=== PATIENT | female | born 1950 | race Two or more races ===

== ENCOUNTER 2025-02-19 08:10 | Inpatient (IN) | payer MEDICARE, MEDICAID ==
[~2025-02-19] VITALS: Ht 154.9 cm; Wt 102.4 kg
--- NOTE | 2025-02-19 09:12 | ED.PDOC ---
GI ASSESSMENT HPI Comments Shiela Do is a 74-year-old female, with past medical history of Dementia, CHF, COPD, DM2, peripheral neuropathy, CKD stage IV, anemia, hearing loss, hypelipidemia, HTN and obesity. The patient came to the ED via EMS from [facility] with chief complain of 2 days of watery diarrhea, abundant, foul smell, yellowish, no blood; associated with loss of appetite, sob, wet cough and general weakness. The patient's caregiver is providing the information today. On further questioning, the patient is being in the post acute facility due to tibia fracture since 11/17/24. Today, the caregiver noticing the patient with alter mental status and decided to take the patient to the ED. The caregiver denies fever, nausea, vomit or other symptoms. In the ED: BP: 134/81mmHg, HR: 75bpm. RR: 18xmin. The patient will be admitted for further assessment and managements. Chief Complaint: Diarrhea Time Seen by MD: 08:22 Reviewed Notes: Nurses Notes Allergies: Coded Allergies: Lactose (Verified Allergy, Unknown, 02/19/25) Information Source: Patient Mode of Arrival: EMS Timing: Days Duration: Since onset Past Medical History PAST MEDICAL HISTORY: CHF, COPD, Dementia, DM, ESRD (Stage IV), HTN, MRSA Surgical History: Unknown (Caregiver does not have this information. ), Unobtainable FLIGHT MECHANIC History: Unobtainable Family History Family History: Unobtainable Social History Smoker: Non-Smoker Alcohol: Denies ETOH Use Drugs: Denies Drug Use Lives In: [facility] ([facility]) Constitutional: reports: weakness; denies: chills, diaphoresis, fatigue, fever, malaise, sweats, others EENTM: denies: blurred vision, double vision, ear bleeding, ear discharge, ear drainage, ear pain, ear ringing, eye pain, eye redness, hearing loss, mouth pain, mouth swelling, nasal discharge, nose bleeding, nose congestion, nose pain, photophobia, tearing, throat pain, throat swelling, voice changes, others Respiratory: reports: cough, shortness of breath (Oxigen 2L at home. ); denies: hemoptysis, orthopnea, SOB at rest, SOB with excertion, stridor, wheezing, others Cardiovascular: denies: chest pain, dizzy spells, diaphoresis, Dyspnea on exertion, edema, irregular heart beat, left arm pain, lightheadedness, palpitations, PND, syncope, others Gastrointestinal: denies: abdomen distended, abdominal pain, blood streaked bowels, constipated, diarrhea, dysphagia, difficulty swallowing, hematemesis, melena, nausea, poor appetite, poor fluid intake, rectal bleeding, rectal pain, vomiting, others Genitourinary: denies: abnormal vagina bleeding, burning, dyspareunia, dysuria, flank pain, frequency, hematuria, incontinence, pain, , vagina discharge, urgency, others Neurological: reports: others (Peripheral neuropathy); denies: dizziness, fainting, headache, left sided numbness, left sided weakness, numbness, paresthesia, pre-existing deficit, right sided numbness, right sided weakness, seizure, speech problems, tingling, tremors, weakness Musculoskeletal: denies: back pain, gout, joint pain, joint swelling, muscle pain, muscle stiffness, neck pain, others Integumetry: denies: bruises, change in color, change in hair/nails, dryness, laceration, lesions, lumps, rash, wounds, others Allergic/Immunocompromised: denies: Difficulty Healing, Frequent Infections, Hives, Itching, others Hematologic/Lymphatic: reports: anemia; denies: blood clots, easy bleeding, easy bruising, swollen glands, others Endocrine: denies: excessive hunger, excessive sweating, excessive thirst, excessive urination, flushing, intolerance to cold, intolerance to heat, unexplained weight gain, unexplained weight loss, others Psychiatric: denies: anxiety, bipolar disorder, depression, hopeless, panic disorder, schizophrenia, sleepless, suicidal, others Physical Exam Exam Comments Alert, Oriented in person, but confused and has dementia. General Appearance: Mild Distress, Other (Pale) HEENT: Normal ENT Inspection, Pharynx Normal, TMs Normal Neck: Full Range of Motion, Non-Tender, Normal, Normal Inspection Respiratory: Chest Non-Tender, Rhonchi, Wheezing, Other (Bilateral rhonchi and wheezing.) Cardiovascular: No Murmur, No Gallop, Regular Rate/Rhythm Breast Exam: Deferred Gastrointestinal: Normal Bowel Sounds, Soft, Other (No grimance on deep palpation. ) Genitalia: Deferred Pelvic: Deferred Rectal: Deferred Extremities: Other (Inspection: Left leg: with orthopedic boot. Right leg: dry skin. Bilateral mild no pittting edema. ) Musculoskeletal : Apperance: Normal Neurologic: Alert, search manager II-XII nml as Tested, No Motor Deficits, Normal Affect, Normal Mood, No Sensory Deficits, Other (On wheelchair. ) Cerebellar Function: Other (difficult to evaluate) Reflexes: Normal Skin: Dry, Warm Lymphatic: No Adenopathy Was a procedure done? Was a procedure done?: No GI differential Dx Differential Diagnosis: Gastroenteritis, Electrolyte Imbalance, Bacterial, Viral Other Differential Diagnosis Enteritis X-Ray, Labs, Meds, VS Vital Signs Date Time Temp Pulse Resp B/P (MAP) Pulse Ox O2 Delivery O2 Flow Rate FiO2 02/19/25 08:13 97.8 75 18 134/81 96 97.8 Lab Test 02/19/25 08:59 Range/Units White Blood Count Pending Red Blood Count Pending Hemoglobin Pending Hematocrit Pending Mean Corpuscular Volume Pending Mean Corpuscular Hemoglobin Pending Mean Corpuscular Hemoglobin Concent Pending Red Cell Distribution Width Pending Platelet Count Pending Mean Platelet Volume Pending Neutrophils (%) (Auto) Pending Lymphocytes (%) (Auto) Pending Monocytes (%) (Auto) Pending Basophils (%) (Auto) Pending Neutrophils # (Auto) Pending Lymphocytes # (Auto) Pending Monocytes # (Auto) Pending Sodium Level Pending Potassium Level Pending Chloride Level Pending Carbon Dioxide Level Pending Anion Gap Pending Blood Urea Nitrogen Pending Creatinine Pending Glomerular Filtration Rate Calc Pending BUN/Creatinine Ratio Pending Serum Glucose Pending Calcium Level Pending Total Bilirubin Pending Aspartate Amino Transferase (AST) Pending Alanine Aminotransferase (ALT) Pending Alkaline Phosphatase Pending Total Protein Pending Albumin Pending X-Ray, Labs, Meds, VS Comment 0900 The patient was re-evaluated Alert, confused, in wheelchair, caregiver is by her side. CBC: Hb 11.3mg/dl CMP: pending at this time The patient will be admitted for further assessment and management. Time of 1ST Reevaluation: 09:00 Reevaluation 1ST: Unchanged Patient Education/Counseling: Diagnosis, Treatment, Prognosis, Need For Follow Up Family Education/Counseling: Diagnosis, Treatment, Prognosis, Need For Follow Up SEPSIS Sepsis Screen Date sepsis recognized/suspect: Feb 19, 2025 Time Sepsis recognized/suspect: 0816 Recent Procedure: No On Antibiotic Therapy: No Respiratory Rate >20: No Heart Rate >90: No Temp<36 C (96.8 F) or >38.3 C: No SBP <90 or MAP <65 mmHG: No New Acute Mental Status Change: No Is the patient on CPAP, BIPAP,: No Physician Orders Complete Blood Count (02/19/25 08:38) Comprehensive Metabolic Panel (02/19/25 08:38) Urinalysis (02/19/25 08:38) Stool Wbc (02/19/25 08:38) Sodium Chloride 0.9% (02/19/25 08:45) Chest Xray 1 View (02/19/25 08:38) Blood Culture (02/19/25 08:38) Stool Bacterial Culture (02/19/25 08:38) Ceftriaxone 1gm/50ml (Rocephin) (02/19/25 08:45) Clostridium Difficile Toxin (02/19/25 08:45) Electrocardigram (02/19/25 08:48) Lactic Acid W/ Reflex Order (02/19/25 08:48) Lipase (02/19/25 09:13) Vancomycin (02/19/25 09:15) Vital Signs Date Time Temp Pulse Resp B/P (MAP) Pulse Ox O2 Delivery O2 Flow Rate FiO2 02/19/25 08:13 97.8 75 18 134/81 96 97.8 Laboratory Tests Test 02/19/25 08:59 White Blood Count Pending Departure 1 Departure Time of Disposition: 09:14 Impression: Primary Impression: Pneumonia Additional Impressions: COPD exacerbation Gastroenteritis Disposition: 09 ADMITTED INPATIENT Admit to: Med Surg Condition: Fair Comments Goals of care discussed with the patient > 35 min. Discussed plan of care with Dr. Louise Code status: Full code PCP: Dr. Arias Coon Plan discussed with: Caregiver and patient, caregiver agrees with the admission plan. Critical Care Note Critical Care Time?: No Stability Stability form required: No Heart Score Heart Score: Heart Score Response (Comments) Value History N/A 0 EKG N/A 0 Age N/A 0 Risk Factors N/A 0 Troponin N/A 0 Total 0 ARTEMIO WOOD RESIDENT Feb 19, 2025 09:12
[2025-02-19 09:16] LABS: Hematocrit 34.3 % (36.0-46.0); Hemoglobin 11.3 g/dL (12.2-16.2); Mean Corpuscular Hemoglobin 27.3 pg (28.0-32.0); Mean Corpuscular Volume 82.8 fL (80.0-100.0); Nucleated Red Blood Cells % 0.0 %
[2025-02-19 09:33] LABS: Albumin 4.0 g/dL (3.2-4.8); Alkaline Phosphatase 102 U/L (46-116); Anion Gap 9 (5-15); BUN/Creatinine Ratio 12.9 (10.0-20.0); Blood Urea Nitrogen 22 mg/dL (9-23); Calcium 8.8 mg/dL (8.7-10.4); Chloride 100 mmol/L (98-107); Potassium 4.2 mmol/L (3.5-5.1); Sodium 144 mmol/L (136-145); Total Protein 6.8 g/dL (5.7-8.2)
[2025-02-19 09:34] LABS: Bilirubin, Total 0.3 mg/dL (0.2-1.0)
[2025-02-19 09:37] LABS: Alanine Aminotransferase < 9 U/L (7-40); Carbon Dioxide 35 mmol/L (20-31); Glucose 110 mg/dL (74-106)
[2025-02-19] MEDS: SODIUM CHLORIDE 0.9% 1,000 ML IV ONE (11:14)
[2025-02-19] MEDS: VANCOMYCIN 1GM/250ML KIT 250 ML IV ONE (11:16)
--- NOTE | 2025-02-19 13:33 | DVH ---
CLINICAL HISTORY: r/o pneumpnia TECHNIQUE: Single view of the chest was obtained. COMPARISON: CHEST 1VIEW PORTABLE ([id number]) on DOS: 11/11/24, CHEST 1VIEW PORTABLE ([id number]) on DOS: 10/19/24, CHEST 1VIEW PORTABLE ([id number]) on DOS: 10/12/24, CHEST 1VIEW PORTABLE ([id number]) on DOS: 10/06/24, CHEST 1VIEW PORTABLE ([id number]) on DOS: 09/17/24 FINDINGS: The heart size is normal in size and the pulmonary vasculature is prominent. There are bilateral infrahilar opacities. IMPRESSION: Bilateral infrahilar opacities, which may represent infection or pulmonary edema. LUIS KAPLAN
[2025-02-19 16:21] VITALS: PULSE 71; RESP 16; O2SAT 95
[2025-02-19 16:35] LABS: Urine Budding Yeast OCCASIONAL /hpf (None Seen); Urine Protein, UAD Negative (Negative)
[2025-02-19] MEDS ORDERED: VANCOMYCIN 1.25GM/250ML 250 ML IV SCH (17:30)
[2025-02-19] MEDS ORDERED: VANCOMYCIN PER PHARMACY 0 MG IV SCH (17:45)
[2025-02-19] MEDS: SODIUM CHLORIDE 0.9% 1,000 ML IV SCH ×2 (17:52→19:15)
--- NOTE | 2025-02-19 18:19 | DVHHPRES ---
History of Present Illness Resident Creating Document: MALACHI ORTEGA RESIDENT History of Present Illness The patient a 70 history: CHF with unknown EF, COPD with unknown home oxygen status, type 2 diabetes mellitus, peripheral neuropathy, CKD stage 4 unknown dialysis status, produces urine, anemia, hearing loss, hyperlipidemia, hyp ertension, obesity presented to the ER with complaints of diarrhea. The patient presented with altered mental status, confusion and agitation. Due to the patient's status, most of the history obtained from SNF papers, ED doctors and the nurses. The diarrhea is not mixed with blood, associated with loss of appetite, shortness of breath,cough and generalized weakness. Patient was in the post acute care facility following tibia fracture. Rest of the history was not obtained due to patient's mental status, upon improvement of mental status Past surgical and social history will be obtained. Review of Systems Allergies: Coded Allergies: Lactose (Verified Allergy, Unknown, 02/19/25) Medications Current Medications Medications Dose Ordered Sig/Jessica Route Start Time Stop Time Status Last Admin Dose Admin Sodium Chloride 1,000 ml @ 120 mls/hr Q8H20M IV 02/19/25 17:30 02/19/25 17:52 120 MLS/HR Ceftriaxone Sodium 50 ml @ 100 mls/hr DAILY@09 IV 02/20/25 09:00 Vancomycin HCl 0 ml @ 0 mls/hr UD IV 02/19/25 17:45 UNV Exam Vital Signs Vital Signs Date Time Temp Pulse Resp B/P (MAP) Pulse Ox O2 Delivery O2 Flow Rate FiO2 02/19/25 16:21 71 16 95 Nasal Cannula* 2 28 02/19/25 16:20 97.3 140/110 (120) 97.3 Exam Pt is lying on bed General Appearance: Alert, Oriented X3, Cooperative, Mild distress HEENT: Atraumatic, Mucous membranes moist/pink Respiratory: Mild crackles over both lung nelson, Normal air movement, No added sounds Cardiovascular: Regular rate, Normal S1, Normal S2, No murmurs Abdominal/ : Active bowel sounds, Soft, no distention, no tenderness Extremities: No edema, Normal pulses, right leg orthopedic brace present Skin: Stage II sacral ulcers present on admission. Neuro: Normal speech, sensorimotor deficits none Psych/Mental Status: Mental status NL, Mood NL Nurse was there as network security architect during examination Labs/Xrays Labs Test 02/19/25 17:53 02/19/25 16:00 10/17/25 09:32 02/19/25 08:59 Range/Units Urine Color Colorless Yellow Urine Clarity Turbid H Clear Urine pH 5.5 5.0-9.0 Urine Specific Bolton 1.009 1.001-1.035 Urine Protein Negative Negative Urine Ketones Negative Negative Urine Blood Negative Negative /uL Urine Nitrite Negative Negative Urine Bilirubin Negative Negative Urine Urobilinogen Normal Negative mg/dL Urine Leukocyte Esterase 3+ Negative /uL Urine RBC 1 0 - 4 /hpf Urine Microscopic WBC 149 H 0-5 /HPF Urine Squamous Epithelial Cells Many <5 /hpf Urine Bacteria Mod H None Seen /hpf Urine Hyaline Casts Few 0 - 2 /lpf Urine Yeast (Budding) Occasional None Seen /hpf Urine Glucose Normal Normal mg/dL Lactic Acid Level 1.5 0.4-2.0 mmol/L White Blood Count 9.3 4.4-10.8 10^3/uL Red Blood Count 4.14 4.0-5.20 10^6/uL Hemoglobin 11.3 L 12.2-16.2 g/dL Hematocrit 34.3 L 36.0-46.0 % Mean Corpuscular Volume 82.8 80.0-100.0 fL Mean Corpuscular Hemoglobin 27.3 L 28.0-32.0 pg Mean Corpuscular Hemoglobin Concent 32.9 32.0-36.0 g/dL Red Cell Distribution Width 15.5 H 11.8-14.3 % Platelet Count 272 140-450 10^3/uL Mean Platelet Volume 7.9 6.9-10.8 fL Neutrophils (%) (Auto) 73.4 37.0-80.0 % Lymphocytes (%) (Auto) 6.3 L 10.0-50.0 % Monocytes (%) (Auto) 12.8 H 0.0-12.0 % Eosinophils (%) (Auto) 7.1 H 0.0-7.0 % Basophils (%) (Auto) 0.4 0.0-2.0 % Neutrophils # (Auto) 6.8 1.6-8.6 10 ^3/uL Lymphocytes # (Auto) 0.6 0.4-5.4 10 ^3/uL Monocytes # (Auto) 1.2 0-1.3 10 ^3/uL Eosinophils # (Auto) 0.7 0-0.8 10 ^3/uL Basophils # (Auto) 0 0-0.2 10 ^3/uL Nucleated Red Blood Cells 0.0 % Sodium Level 144 136-145 mmol/L Potassium Level 4.2 3.5-5.1 mmol/L Chloride Level 100 98-107 mmol/L Carbon Dioxide Level 35 H 20-31 mmol/L Anion Gap 9 5-15 Blood Urea Nitrogen 22 9-23 mg/dL Creatinine 1.70 H 0.550-1.02 mg/dL Glomerular Filtration Rate Calc 31 >90 mL/min BUN/Creatinine Ratio 12.9 10.0-20.0 Serum Glucose 110 H 74-106 mg/dL Calcium Level 8.8 8.7-10.4 mg/dL Total Bilirubin 0.3 0.2-1.0 mg/dL Aspartate Amino Transferase (AST) 9 L 13-40 U/L Alanine Aminotransferase (ALT) < 9 7-40 U/L Alkaline Phosphatase 102 46-116 U/L Total Protein 6.8 5.7-8.2 g/dL Albumin 4.0 3.2-4.8 g/dL Lipase 29 12-53 U/L SEPSIS Sepsis Screen Date sepsis recognized/suspect: Feb 19, 2025 Time Sepsis recognized/suspect: 08 Recent Procedure: No On Antibiotic Therapy: No Respiratory Rate >20: No Heart Rate >90: No Temp<36 C (96.8 F) or >38.3 C: No SBP <90 or MAP <65 mmHG: No New Acute Mental Status Change: No Is the patient on CPAP, BIPAP,: No Physician Orders Complete Blood Count (02/20/25 04:00) Insert/Manage Urinary Catheter QSHIFT (02/19/25 16:26) Admit (02/19/25:28) Sodium Chloride 0.9% (02/19/25 17:30) Oxygen Per Hour (02/19/25 17:28) Fall Risk Precautions In Place QSHIFT (02/19/25 17:28) Complete Blood Count (02/20/25 04:00) Comprehensive Metabolic Panel (02/20/25 04:00) Npo (Nothing By Mouth) Diet (02/19/25 Dinner) * Swallow Request (02/19/25 17:28) Bedrest With Bathroom Privileg (02/19/25 17:28) Sequential Compression Device (02/19/25 ) Notify Md Of Changes From Base (02/19/25 17:28) Stat Ekg For Chest Pain (02/19/25 17:28) Urine Bacterial Culture (02/19/25 17:28) Ceftriaxone 1gm/50ml (Rocephin) (02/20/25 09:00) Vancomycin Per Pharmacy Protoc (02/19/25 17:28) Vancomycin,Trough (02/19/25 17:28) Vancomycin Per Pharmacy (02/19/25 17:45) Vital Signs Date Time Temp Pulse Resp B/P (MAP) Pulse Ox O2 Delivery O2 Flow Rate FiO2 02/19/25 16:21 71 16 95 Nasal Cannula* 2 28 02/19/25 16:20 97.3 71 16 140/110 (120) 95 97.3 Laboratory Tests Test 02/19/25 08:59 02/19/25 09:32 White Blood Count 9.3 10^3/uL (4.4-10.8) Lactic Acid Level 1.5 mmol/L (0.4-2.0) Medications Medications Dose Ordered Sig/Jessica Route Start Time Stop Time Status Last Admin Dose Admin Ceftriaxone Sodium 50 ml @ 100 mls/hr ONCE ONCE IV 02/19/25 08:45 02/19/25 09:14 DC 02/19/25 11:15 100 MLS/HR Sodium Chloride 1,000 ml @ 120 mls/hr Q8H20M IV 02/19/25 17:30 02/19/25 17:52 120 MLS/HR Sodium Chloride 1,000 ml @ 500 mls/hr Q2H ONCE IV 02/19/25 08:45 02/19/25 11:09 DC 02/19/25 11:14 500 MLS/HR Vancomycin HCl 250 ml @ 250 mls/hr ONCE ONCE IV 02/19/25 09:15 02/19/25 10:14 DC 02/19/25 11:16 250 MLS/HR Assessment/Plan Assessment/Plan Sepsis due to acute gastroenteritis IV bolus fluid IV ceftriaxone and metronidazole Stool culture, stool C diff sent Urinalysis and urine culture sent JOSE due to VMN IV fluid Monitor renal functions History of systolic or diastolic heart failure with unknown ejection fraction Aspiration pneumonia? Pneumonia due to Gram-positive or Gram-negative organism Chest x-ray reveals pulmonary edema/pneumonia IV Ceftriaxone and doxycycline GI prophylaxis: Pantoprazole DVT prophylaxis: SCDs Diet: Pureed diet Goals of care discussed with the patient for more than 27 minutes: Full code status Case discussed with , patient and RN Plan discussed with: Patient, Other (RN) My Orders Orders - MALACHI ORTEGA RESIDENT Procedure Category Date Status Time Admit ADMIT 02/19/25 Transmitted 17:28 Sodium Chloride 0.9% PHA 02/19/25 In Process 17:30 Oxygen Per Hour RT 02/19/25 Transmitted 17:28 Fall Risk Precautions [facility] 02/19/[address] 17:28 Complete Blood Count LAB 02/20/25 Verified 04:00 Comprehensive LAB 02/20/25 Verified Metabolic Panel 04:00 Npo (Nothing By DIET 02/19/25 Transmitted Mouth) Diet Dinner * Swallow Request ST 02/19/25 Transmitted 17:28 Bedrest With Bathroom BONG 02/19/25 In Process Privileg 17:28 Sequential [facility] 02/19/25 In Process Compression Device Notify Md Of Changes [facility] 02/19/25 In Process From Base 17:28 Stat Ekg For Chest BONG 02/19/25 In Process Pain 17:28 Urine Bacterial NEHA 02/19/25 Logged Culture 17:28 Ceftriaxone 1gm/50ml PHA 02/20/25 In Process (Rocephin) 09:00 Vancomycin Per BONG 02/19/25 In Process Pharmacy Protoc 17:28 Vancomycin,Trough LAB 02/19/25 Logged 17:28 Vancomycin Per PHA 02/19/25 Pending Pharmacy 17:45 Date of Service: Feb 19, 2025 Billing Provider: LUIS M GONZALEZ MD Common Visit Codes: [id number]-[id number] INP/OBS CARE (HIGH) Secondary Visit Codes: [id number] CARE PLAN 30 MINUTES MALACHI ORTEGA RESIDENT Feb 19, 2025 18:19 LUIS M GONZALEZ MD Feb 23, 2025 10:19
[2025-02-19] MEDS ORDERED: ONDANSETRON HCL 4 MG/2 ML VIAL IV PRN (19:15)
--- NOTE | 2025-02-19 21:52 | DVH ---
COMPUTERIZED TOMOGRAPHY ABDOMEN AND PELVIS WITHOUT CONTRAST REASON FOR EXAM: abd pain COMPARISON: ABDOMEN 2 VIEW ([id number]) on DOS: 10/21/24 TECHNIQUE: Spiral scans were acquired from the diaphragm to the symphysis pubis without intravenous c ontrast administration. 2-D coronal and sagittal reformatted images were provided. Radiation optimiza tion: All CT scans at this facility use at least one of these dose optimization techniques: Automated exposure control mA and/or kV adjustment per patient size (includes targeted exams where dose is mat ched to clinical indication) or iterative reconstruction. RADIATION DOSE: CTDI: 27.38 mGy DLP: 1505.35 mGy-cm FINDINGS: There is mild dependent atelectasis in the visualized lung bases. There is no pleural effusion. Ther e is no pericardial effusion. There are coronary artery calcifications. The spleen is not enlarged. The liver is normal in size and contour. Evaluation of the abdominal org ans is suboptimal in the absence of intravenous contrast. There are calcified gallstones. There is no pericholecystic edema. Unenhanced appearance of the pancreas is unremarkable. The adrenal glands are normal. The kidneys are similar in size. There is no hydronephrosis of either kidney. There is no r enal, ureteral, or bladder calculus. There is no abdominal aortic aneurysm. There is extensive ather osclerosis. The urinary bladder is collapsed about a Cruz catheter balloon. The uterus and ovaries a re grossly unremarkable. No free fluid is identified in the abdomen or pelvis. There is extensive si gmoid diverticulosis without evidence of diverticulitis. The colonic stool burden is overall small. The appendix is normal. There is no pathologic distention of the small bowel. No pathologic lymphaden opathy is identified by size criteria. There is increased density of the soft tissues dorsal to the c occyx consistent with early decubitus ulcer. There is extensive degenerative change in the visualized spine. There is bony ankylosis of the bodies of L1 with L2 and L4 with L5. There are bulky and confl uence ventral osteophytes in the visualized thoracic spine. IMPRESSION: Early sacrococcygeal decubitus ulcer formation. Direct visualization is recommended. Extensive sigmoid diverticulosis without evidence of diverticulitis. Cholelithiasis. No definite evidence of acute cholecystitis. Consider right upper quadrant ultrasoun d if clinically indicated. Coronary artery disease
[2025-02-19] MEDS: OLANZapine 5 MG TAB PO ONE (22:00)
[2025-02-19] MEDS: DOXYCYCLINE 100MG/100ML 100 ML IV ONE (22:23)
[2025-02-19] MEDS: PANTOPRAZOLE 40 MG/10 ML VIAL INJ IV ONE (22:24)
[2025-02-20 06:50] LABS: Nucleated Red Blood Cells % 0.0 %
[2025-02-20 06:51] LABS: Hematocrit 35.9 % (36.0-46.0); Hemoglobin 11.5 g/dL (12.2-16.2); Mean Corpuscular Hemoglobin 27.1 pg (28.0-32.0); Mean Corpuscular Volume 84.5 fL (80.0-100.0)
[2025-02-20 08:00] VITALS: PULSE 72; RESP 17; O2SAT 96
[2025-02-20 08:08] LABS: Albumin 3.4 g/dL (3.2-4.8); Alkaline Phosphatase 91 U/L (46-116); Anion Gap 9 (5-15); BUN/Creatinine Ratio 15.1 (10.0-20.0); Chloride 104 mmol/L (98-107); Glucose 75 mg/dL (74-106); Potassium 4.2 mmol/L (3.5-5.1)
[2025-02-20 08:09] LABS: Alanine Aminotransferase 9 U/L (7-40); Bilirubin, Total 0.3 mg/dL (0.2-1.0); Blood Urea Nitrogen 23 mg/dL (9-23); Calcium 8.0 mg/dL (8.7-10.4); Carbon Dioxide 34 mmol/L (20-31); Sodium 147 mmol/L (136-145); Total Protein 5.6 g/dL (5.7-8.2)
[2025-02-20 09:11] LABS: COVID19 ANTIGEN SOFIA FIA NEGATIVE (NEGATIVE)
[2025-02-20] MEDS ORDERED: VANCOMYCIN PER PHARMACY 0 MG IV SCH (10:00)
[2025-02-20] MEDS ORDERED: DOXYCYCLINE 100MG/100ML 100 ML IV SCH (11:00)
[2025-02-20] MEDS: PANTOPRAZOLE 40 MG/10 ML VIAL INJ IV SCH (11:00)
[2025-02-20] MEDS: ENOXAPARIN SOD 40 MG/0.4 ML SYRINGE SC SCH (11:00)
[2025-02-20] MEDS: VANCOMYCIN 1.5GM/250ML 250 ML IV ONE (12:15)
[2025-02-20] MEDS: HYDROMORPHONE HCL 1 MG/ML INJ IV ONE (14:20)
--- NOTE | 2025-02-20 15:11 | DVHPNRES ---
Progress Note Date Seen: Feb 20, 2025 Resident Creating Document: PANCHITO SUNG RESIDENT Medical Necessity Reason Pt with a Central, PICC or Fol: Yes (RN) The following are medically ne: Cruz Catheter Subjective Review of Systems Patient is a 70-year-old female with past medical history of congestive heart failure with unknown ejection fraction, chronic obstructive pulmonary disease, type 2 diabetes mellitus, peripheral neuropathy, chronic kidney disease stage 4 with unknown dialysis status (currently producing urine), anemia, hearing loss, hyperlipidemia, hypertension, and obesity, presented to [facility] ED with complaint of diarrhea. She presented to the emergency department via EMS from [facility] with a chief complaint of two days of watery diarrhea. The diarrhea was described as abundant, foul-smelling, yellowish in color, and without blood. Associated symptoms included loss of appetite, shortness of breath, wet cough, and generalized weakness. The patient has been residing in the post-acute care facility since November 17, 2024, following a tibia fracture. Today, her caregiver noted a change in mental status, including confusion and agitation, and decided to bring her to the emergency department. The caregiver denied any fever, nausea, vomiting, or other symptoms. Patient was noted to have altered mental status, confusion, and agitation. Additional symptoms included loss of appetite, shortness of breath, cough, and generalized weakness. The patient had been residing in a post-acute care facility following a tibia fracture. Her current presentation raises concern for possible infectious etiology, metabolic derangement, or decompensation of her chronic medical conditions. Further evaluation and management are ongoing. Past medical history: CHF, COPD, Dementia, DM, ESRD (Stage IV), HTN, MRSA Past surgical history: Unknown (Caregiver does not have this information. ), Unobtainable Social & Personal history: Smoker: Non-Smoker. Alcohol: Denies ETOH Use. Drugs: Denies Drug Use. Lives In: Detention ([facility]) Patient seen and examined at bedside. Constitutional: reports: weakness; denies: chills, diaphoresis, fatigue, fever, malaise, sweats, others Eyes: No Pain, No Vision change, No Conjunctivae inflammation, No Eyelid inflammation, No Other, No Redness ENT: No Ear pain, No Ear discharge, No Nose pain, No Nose discharge, No Nose congestion, No Mouth pain, No Mouth swelling, No Throat pain, No Throat swelling, No Other Cardiovascular: No Chest Pain, No Palpitations, No Orthopnea, No Paroxysmal No Dyspnea, No Edema, No Lt Headedness, No Other Respiratory: reports: cough, shortness of breath (Oxygen 2L at home) No Dry, No Shortness of breath, No SOB with exertion, No Wheezing, No Hemoptysis, No Pleuritic Pain, No Sputum, No Other Gastrointestinal: No Nausea, No Vomiting, No Abdominal Pain, No Diarrhea, No Constipation, No Melena, No Hematochezia, No Other Genitourinary: No Dysuria, No Frequency, No Incontinence, No Hematuria, No Retention, No Other Musculoskeletal: No other, No neck pain, No shoulder pain, No arm pain, No back pain, No hand pain, No leg pain, No foot pain Skin: No Rash, No Lesions, No Jaundice, No Bruising, No Other Neurological: Peripheral neuropathy Hematologic/Lymphatic: anemia Objective vital signs Vital Sign Date Time Temp Pulse Resp B/P (MAP) Pulse Ox O2 Delivery O2 Flow Rate FiO2 02/20/25 14:20 90 15 141/77 02/20/25 11:34 96 02/20/25 08:00 97.1 97.1 02/20/25 08:00 Nasal Cannula* 2 28 Total Intake and Output 02/19/25 02/19/25 02/20/25 15:00 23:00 07:00 Intake Total 270 ml 820 ml Output Total 700 ml Balance 270 ml 120 ml medications Current Medications Medications Dose Ordered Sig/Jessica Route Start Time Stop Time Status Last Admin Dose Admin Ceftriaxone Sodium 50 ml @ 100 mls/hr DAILY@09 IV 02/20/25 09:00 02/20/25 10:59 100 MLS/HR Metronidazole 100 ml @ 100 mls/hr Q8HR IV 02/19/25 22:00 02/20/25 14:19 100 MLS/HR Sodium Chloride 1,000 ml @ 90 mls/hr Q11H7M IV 02/19/25 19:15 02/19/25 19:15 90 MLS/HR Pantoprazole Sodium 40 mg DAILY IV 02/20/25 10:00 02/20/25 11:00 40 MG Enoxaparin Sodium 40 mg DAILY SC 02/20/25 10:00 02/20/25 11:00 40 MG Vancomycin HCl 0 ml @ 0 mls/hr UD IV 02/20/25 10:00 Hydromorphone HCl 0.5 mg Q6HPRN PRN IV 02/20/25 13:45 Ondansetron HCl 4 mg Q4HPRN PRN IV 02/20/25 14:30 Examination General Appearance: Alert, Oriented X3, Cooperative, Mild distress HEENT: Atraumatic, Mucous membranes moist/pink Respiratory: Mild crackles over both lung nelson, Normal air movement, No added sounds Cardiovascular: Regular rate, Normal S1, Normal S2, No murmurs Abdominal/ : Active bowel sounds, Soft, no distention, no tenderness Extremities: No edema, Normal pulses, right leg orthopedic brace present Skin: Stage II sacral ulcers present on admission. Neuro: Normal speech, sensorimotor deficits none Psych/Mental Status: Mental status NL, Mood NL laboratory and microbiology Laboratory Tests 02/20/25 07:40 02/20/25 06:32 Test 02/20/25 07:40 Range/Units Serum Glucose 75 74-106 mg/dL Microbiology Date/Time Source Procedure Growth Status 02/19/25 17:53 Stool Stool Culture - Preliminary Resulted 02/19/25 17:53 Stool Shiga Toxin I & II Pending Resulted 02/19/25 16:00 Voided Urine Urine Culture - Preliminary Resulted 02/19/25 08:59 Blood Blood Culture - Preliminary Resulted Labs and/or images reviewed: Labs reviewed by me, Image(s) reviewed by me Problem List/Assessment/Plan Problem List/Assessment/Plan Assessment/Plan Sepsis due to acute gastroenteritis Sigmoid diverticulosis Cholelithiasis Abdomen/Pelvis CT: Extensive sigmoid diverticulosis without evidence of diverticulitis. Cholelithiasis. IV bolus fluid IV ceftriaxone and metronidazole Stool culture, stool C diff sent Urinalysis and urine culture sent Stage II sacral ulcers Abdomen/Pelvis CT: Early sacrococcygeal decubitus ulcer formation. JOSE due to VMN IV fluid Monitor renal functions History of systolic or diastolic heart failure with unknown ejection fraction Aspiration pneumonia? Pneumonia due to Gram-positive or Gram-negative organism Chest x-ray reveals pulmonary edema/pneumonia IV Ceftriaxone and doxycycline Diet: Pureed diet GI prophylaxis: Pantoprazole DVT prophylaxis: SCDs Goals of care: Full code, discussed for >16 minutes on 02/20/25 Plan discussed with patient Plan discussed with Dr. Gonzalez Plan discussed with: Patient (RN), Other My Orders My Orders Orders - PANCHITO SUNG Procedure Category Date Status Time Hydromorphone PHA 02/20/25 In Process Injection (Dilaudid 18:00 Ondansetron Hcl PHA 02/20/25 In Process (Zofran) 14:30 Dietary Evaluation Review Recommendations by RD: Dietary education by RD Comments: 1) Initiate MVI @ 1 tb qd 2) Initiate vitamin C @ 500 mg bid and zinc sulfate @ 220 mg for 7 days 3) If patient remains NPO > 7 days, 4) Advance to 45g CCHO cardiac diet when medically feasible 5) Refer to outpatient RD/CDCES for weight management 6) Follow-up with gastroenterology, cardiology, pulmonology, and nephrology 7) Continue to monitor I&O, labs, and skin integrity Expected Outcomes/Goals: 1) patient to receive nutritional support within 7 days of NPO status 2) labs and GI symptoms to improve 3) wounds to improve 4) diet to advance 5) gradual wt loss 6) f/u in 3-5 days Date of Service: Feb 20, 2025 Billing Provider: LIUS M GONZALEZ MD Common Visit Codes: [id number] INP/OBS CARE(HIGH) PANCHITO SUNG Feb 20, 2025 15:11 LUIS M GONZALEZ MD Feb 23, 2025 10:18
[2025-02-20] MEDS ORDERED: HYDROmorphone HCL 2 MG/ML VL/or syr IV ONE (18:00)
--- NOTE | 2025-02-20 19:54 | DVHSR ---
APPROVED REPORT EXAM: LIMITED Two-dimensional and M-mode echocardiogram with Doppler and color Doppler. Blood Pressure: 135/81 mmHg INDICATION chf RISK FACTORS Obesity: Height: 5'1, Weight: 214 DIMENSIONS LVDd (3.8-5.7cm)LA (2D)3.8 (1.9-4.0cm)Aortic Root3.0 (2.0-3.7cm) EF (%) 50.0 (55-70%)Rt. Atrium (1.9-4.0cm)Asc. Aorta cm Mitral Valve MitralMitral Stenosis E wave0.99m/sMV Mean GR.4mmHg A wave1.22m/sMV Peak GR.50mmHg E/A ratio0.82D MVAcm2 DECEL [id number] 1/2 Timems Aortic Valve Aortic ValveAortic Stenosis V10.90m/Ileana Mean GR.mmHg V21.33m/Ileana Peak GR.7mmHg LVOT Diameter2.0 (1.8-2.4cm)Doppler AVA2.12cm2 Other Information Technically limited study due to pt very altered unable to follow directions/ yelling laying on righ t side Conclusion Technically good study, Difficult acoustic windows and off axis views. CLVH Valves are normal EF of 55% wtht normal RV function. Doppler is normal. No masses or vegetations.
[2025-02-20] MEDS: HYDROmorphone HCL 2 MG/ML VL/or syr IV PRN (20:00)
[2025-02-20 23:40] VITALS: BP 122/82; PULSE 82; RESP 21; TEMP 98.6; O2SAT 99
[2025-02-21] VITALS (8 sets, daily range): BP systolic 128–142; BP diastolic 46–83; PULSE 76–84; RESP 16–22; TEMP 97.4–98.9; O2SAT 93–98
[2025-02-21 06:01] LABS: Hemoglobin 9.8 g/dL (12.2-16.2); Mean Corpuscular Hemoglobin 26.9 pg (28.0-32.0); Nucleated Red Blood Cells % 0.1 %
[2025-02-21 06:04] LABS: Hematocrit 30.1 % (36.0-46.0); Mean Corpuscular Volume 82.9 fL (80.0-100.0)
[2025-02-21 06:23] LABS: Chloride 103 mmol/L (98-107); Potassium 3.9 mmol/L (3.5-5.1); Sodium 144 mmol/L (136-145)
[2025-02-21 06:24] LABS: Anion Gap 8 (5-15)
[2025-02-21 06:27] LABS: Calcium 7.9 mg/dL (8.7-10.4); Carbon Dioxide 33 mmol/L (20-31)
[2025-02-21 06:29] LABS: BUN/Creatinine Ratio 13.0 (10.0-20.0); Blood Urea Nitrogen 18 mg/dL (9-23); Glucose 82 mg/dL (74-106)
--- NOTE | 2025-02-21 16:54 | DVHPNRES ---
Progress Note Date Seen: Feb 21, 2025 Resident Creating Document: JORDANMALACHI RESIDENT Medical Necessity Reason Pt with a Central, PICC or Fol: Yes (RN) The following are medically ne: Cruz Catheter Subjective Review of Systems Shiela Patient is a 70-year-old female with past medical history of congestive heart failure with unknown ejection fraction, chronic obstructive pulmonary disease, type 2 diabetes mellitus, peripheral neuropathy, chronic kidney disease stage 4 with unknown dialysis status (currently producing urine), anemia, hearing loss, hyperlipidemia, hypertension, and obesity, presented to [facility] ED with complaint of diarrhea. She presented to the emergency department via EMS from [facility] with a chief complaint of two days of watery diarrhea. The diarrhea was described as abundant, foul-smelling, yellowish in color, and without blood. Associated symptoms included loss of appetite, shortness of breath, wet cough, and generalized weakness. The patient has been residing in the post-acute care facility since November 17, 2024, following a tibia fracture. Today, her caregiver noted a change in mental status, including confusion and agitation, and decided to bring her to the emergency department. The caregiver denied any fever, nausea, vomiting, or other symptoms. Patient was noted to have altered mental status, confusion, and agitation. Additional symptoms included loss of appetite, shortness of breath, cough, and generalized weakness. The patient had been residing in a post-acute care facility following a tibia fracture. Her current presentation raises concern for possible infectious etiology, metabolic derangement, or decompensation of her chronic medical conditions. Further evaluation and management are ongoing. Past medical history: CHF, COPD, Dementia, DM, ESRD (Stage IV), HTN, MRSA Past surgical history: Unknown (Caregiver does not have this information. ), Unobtainable Social & Personal history: Smoker: Non-Smoker. Alcohol: Denies ETOH Use. Drugs: Denies Drug Use. Lives In: [facility] ([facility]) The patient was seen and examined at bedside. Overnight events were reviewed. The patient was seen to have increasing confusion and was not able to provide any history due to cognitive impairment. No other new complaints reported. Objective vital signs Vital Sign Date Time Temp Pulse Resp B/P (MAP) Pulse Ox O2 Delivery O2 Flow Rate FiO2 02/21/25 05:00 98.9 82 20 128/74 (92) 98 98.9 02/21/25 00:07 Nasal Cannula* 2 28 Total Intake and Output 02/20/25 02/20/25 02/21/25 15:00 23:00 07:00 Intake Total 150 ml 350 ml 1000 ml Output Total 800 ml Balance 150 ml 350 ml 200 ml medications Current Medications Medications Dose Ordered Sig/Jessica Route Start Time Stop Time Status Last Admin Dose Admin Ceftriaxone Sodium 50 ml @ 100 mls/hr DAILY@09 IV 02/20/25 09:00 02/21/25 09:03 100 MLS/HR Metronidazole 100 ml @ 100 mls/hr Q8HR IV 02/19/25 22:00 02/21/25 14:23 100 MLS/HR Sodium Chloride 1,000 ml @ 90 mls/hr Q11H7M IV 02/19/25 19:15 02/20/25 17:29 90 MLS/HR Pantoprazole Sodium 40 mg DAILY IV 02/20/25 10:00 02/21/25 11:17 40 MG Enoxaparin Sodium 40 mg DAILY SC 02/20/25 10:00 02/21/25 11:17 40 MG Vancomycin HCl 0 ml @ 0 mls/hr UD IV 02/20/25 10:00 Hydromorphone HCl 0.5 mg Q6HPRN PRN IV 02/20/25 13:45 02/21/25 03:58 0.5 MG Ondansetron HCl 4 mg Q4HPRN PRN IV 02/20/25 14:30 Examination Pt is lying on bed General Appearance: Alert, Oriented X0, Cooperative, Mild distress HEENT: Atraumatic, Mucous membranes moist/pink Respiratory: Clear to auscultation, Normal air movement, No added sounds Cardiovascular: Regular rate, Normal S1, Normal S2, No murmurs Abdominal/ : Active bowel sounds, Soft, no distention, no tenderness Extremities: No edema, Normal pulses, No tenderness/swelling Skin: Stage II ulcer over the lower back, sacral area, redness and erythema over the skin folds, present on admission Neuro: Normal speech, sensorimotor deficits none Psych/Mental Status: Mental status NL, Mood NL Nurse was there as liquor grinding mill operator during examination laboratory and microbiology Laboratory Tests 02/21/25 05:20 Test 02/21/25 05:20 Range/Units Serum Glucose 82 74-106 mg/dL Microbiology Date/Time Source Procedure Growth Status 02/19/25 17:53 Stool Stool Culture - Preliminary Resulted 02/19/25 17:53 Stool Shiga Toxin I & II Pending Resulted 02/19/25 16:00 Voided Urine Urine Culture - Preliminary Resulted 02/19/25 08:59 Blood Blood Culture - Preliminary Resulted Labs and/or images reviewed: Labs reviewed by me, Image(s) reviewed by me Problem List/Assessment/Plan Problem List/Assessment/Plan Sepsis due to acute infectious gastroenteritis Sigmoid diverticulosis Cholelithiasis Abdomen/Pelvis CT: Extensive sigmoid diverticulosis without evidence of diverticulitis. Cholelithiasis. IV bolus fluid IV ceftriaxone and metronidazole Stool culture, stool C diff sent Urinalysis and urine culture sent Dementia, Increasing confusion and agitation Considered haloperidol given EKG reveals normal QT prolongation, patient is noncooperative to EKG, however ordered again today. Stage II sacral ulcers Abdomen/Pelvis CT: Early sacrococcygeal decubitus ulcer formation. JOSE due to VMN IV fluid Monitor renal functions History of systolic or diastolic heart failure with unknown ejection fraction Aspiration pneumonia? Pneumonia due to Gram-positive or Gram-negative organism Chest x-ray reveals pulmonary edema/pneumonia IV Ceftriaxone and doxycycline Diet: Pureed diet GI prophylaxis: Pantoprazole DVT prophylaxis: SCDs Goals of care: Full code, discussed for >16 minutes on 02/20/25 Plan discussed with son Plan discussed with Dr. Lewis Plan discussed with: Son, Other (RN) My Orders My Orders Orders - MALACHI ORTEGA Procedure Category Date Status Time Electrocardigram EKG 02/21/25 Logged 16:49 Electrocardigram EKG 02/21/25 Verified 16:51 Dietary Evaluation Review Recommendations by RD: Dietary education by RD Comments: 1) Initiate MVI @ 1 tb qd 2) Initiate vitamin C @ 500 mg bid and zinc sulfate @ 220 mg for 7 days 3) If patient remains NPO > 7 days, 4) Advance to 45g CCHO cardiac diet when medically feasible 5) Refer to outpatient RD/CDCES for weight management 6) Follow-up with gastroenterology, cardiology, pulmonology, and nephrology 7) Continue to monitor I&O, labs, and skin integrity Expected Outcomes/Goals: 1) patient to receive nutritional support within 7 days of NPO status 2) labs and GI symptoms to improve 3) wounds to improve 4) diet to advance 5) gradual wt loss 6) f/u in 3-5 days Date of Service: Feb 21, 2025 Billing Provider: LUIS M LEWIS MD Common Visit Codes: [id number] INP/OBS CARE(HIGH) MALACHI ORTEGA RESIDENT Feb 21, 2025 16:54 LUIS M LEWIS MD Feb 23, 2025 10:19
[2025-02-21] MEDS: VANCOMYCIN 500mg/100mL 100 ML IV ONE (17:15)
[2025-02-21] MEDS: POTASSIUM CHL 20 Meq TABLET PO ONE (18:11)
[2025-02-21] MEDS: MAGNESIUM SULFATE 1GM/100ML 100 ML IV ONE (18:48)
[2025-02-21] MEDS: ZOLPIDEM TARTRATE 5 MG TAB PO SCH (21:16)
[2025-02-21] MEDS: ATORVASTATIN 20 MG TAB PO SCH (21:16)
[2025-02-21] MEDS: MIRTAZAPINE 30 MG TAB PO SCH (21:16)
[2025-02-22 05:00] VITALS: BP 154/75; PULSE 74; RESP 18; TEMP 97.9; O2SAT 99
[2025-02-22 07:30] VITALS: PULSE 66; RESP 16; O2SAT 96
[2025-02-22 08:00] VITALS: PULSE 66
[2025-02-22 08:17] LABS: Anion Gap 11 (5-15); Carbon Dioxide 28 mmol/L (20-31); Chloride 105 mmol/L (98-107); Hematocrit 29.6 % (36.0-46.0); Hemoglobin 9.3 g/dL (12.2-16.2); Mean Corpuscular Hemoglobin 27.0 pg (28.0-32.0); Mean Corpuscular Volume 86.0 fL (80.0-100.0); Nucleated Red Blood Cells % 0.2 %; Potassium 3.7 mmol/L (3.5-5.1); Sodium 144 mmol/L (136-145)
[2025-02-22 08:23] LABS: BUN/Creatinine Ratio 10.4 (10.0-20.0); Blood Urea Nitrogen 13 mg/dL (9-23)
[2025-02-22 08:24] LABS: Calcium 7.9 mg/dL (8.7-10.4); Glucose 74 mg/dL (74-106)
[2025-02-22] MEDS: CLOPIDOGREL BISULFATE 75 MG TAB PO SCH (09:21)
[2025-02-22 12:43] VITALS: BP 150/69; PULSE 80; RESP 19; O2SAT 97
--- NOTE | 2025-02-22 16:58 | DVHPNRES ---
Progress Note Date Seen: Feb 22, 2025 Resident Creating Document: CHRIS ALEJANDRE RESIDENT Medical Necessity Reason Pt with a Central, PICC or Fol: Yes (RN) The following are medically ne: Cruz Catheter Subjective Review of Systems Shiela Patient is a 70-year-old female with past medical history of congestive heart failure with unknown ejection fraction, chronic obstructive pulmonary disease, type 2 diabetes mellitus, peripheral neuropathy, chronic kidney disease stage 4 with unknown dialysis status (currently producing urine), anemia, hearing loss, hyperlipidemia, hypertension, and obesity, presented to [facility] ED with complaint of diarrhea. She presented to the emergency department via EMS from [facility] with a chief complaint of two days of watery diarrhea. The diarrhea was described as abundant, foul-smelling, yellowish in color, and without blood. Associated symptoms included loss of appetite, shortness of breath, wet cough, and generalized weakness. The patient has been residing in the post-acute care facility since November 17, 2024, following a tibia fracture. Today, her caregiver noted a change in mental status, including confusion and agitation, and decided to bring her to the emergency department. The caregiver denied any fever, nausea, vomiting, or other symptoms. Patient was noted to have altered mental status, confusion, and agitation. Additional symptoms included loss of appetite, shortness of breath, cough, and generalized weakness. The patient had been residing in a post-acute care facility following a tibia fracture. Her current presentation raises concern for possible infectious etiology, metabolic derangement, or decompensation of her chronic medical conditions. Further evaluation and management are ongoing. Past medical history: CHF, COPD, Dementia, DM, ESRD (Stage IV), HTN Past surgical history: Unknown (Caregiver does not have this information. ), Unobtainable Social & Personal history: Smoker: Non-Smoker. Alcohol: Denies ETOH Use. Drugs: Denies Drug Use. Lives In: Long-Term ([facility]) The patient was seen and examined at bedside. The patient was seen to have increasing confusion and was not able to provide any history due to cognitive impairment. Nurse reports the patient to be violent. Has a sitter. Other Systems: Unable to obtain ROS because the patient is confused. Objective vital signs Vital Sign Date Time Temp Pulse Resp B/P (MAP) Pulse Ox O2 Delivery O2 Flow Rate FiO2 02/22/25 12:43 80 19 150/69 (96) 97 02/22/25 05:00 97.9 97.9 02/21/25 20:00 Nasal Cannula* 2 28 Total Intake and Output 02/21/25 02/21/25 02/22/25 15:00 23:00 07:00 Intake Total 100 ml 2100 ml 100 ml Output Total 250 ml 400 ml Balance 100 ml 1850 ml -300 ml medications Current Medications Medications Dose Ordered Sig/Jessica Route Start Time Stop Time Status Last Admin Dose Admin Ceftriaxone Sodium 50 ml @ 100 mls/hr DAILY@09 IV 02/20/25 09:00 02/22/25 09:01 100 MLS/HR Metronidazole 100 ml @ 100 mls/hr Q8HR IV 02/19/25 22:00 02/22/25 13:57 100 MLS/HR Pantoprazole Sodium 40 mg DAILY IV 02/20/25 10:00 02/22/25 09:08 40 MG Enoxaparin Sodium 40 mg DAILY SC 02/20/25 10:00 02/22/25 09:09 40 MG Vancomycin HCl 0 ml @ 0 mls/hr UD IV 02/20/25 10:00 Hydromorphone HCl 0.5 mg Q6HPRN PRN IV 02/20/25 13:45 02/21/25 03:58 0.5 MG Ondansetron HCl 4 mg Q4HPRN PRN IV 02/20/25 14:30 Mirtazapine 15 mg HS PO 02/21/25 22:00 02/21/25 21:16 15 MG Atorvastatin Calcium 40 mg HS PO 02/21/25 22:00 02/21/25 21:16 40 MG Buspirone HCl 10 mg Q8HR PO 02/21/25 22:00 02/22/25 13:57 10 MG Clopidogrel Bisulfate 75 mg DAILY PO 02/22/25 10:00 02/22/25 09:21 75 MG Fluoxetine HCl 40 mg DAILY PO 02/22/25 10:00 02/22/25 09:21 40 MG Zolpidem Tartrate 5 mg HS PO 02/21/25 22:00 02/21/25 21:16 5 MG Examination General Appearance: Alert, Oriented X0, Cooperative, Mild distress HEENT: Atraumatic, Mucous membranes moist/pink Respiratory: Clear to auscultation, Normal air movement, No added sounds Cardiovascular: Regular rate, Normal S1, Normal S2, No murmurs Abdominal/ : Active bowel sounds, Soft, no distention, no tenderness Extremities: No edema, Normal pulses, No tenderness/swelling Skin: Stage II ulcer over the lower back, sacral area, redness and erythema over the skin folds, present on admission Neuro: Normal speech, sensorimotor deficits none Psych/Mental Status: Mental status NL, Mood NL laboratory and microbiology Laboratory Tests 02/22/25 06:34 Test 02/22/25 06:34 Range/Units Serum Glucose 74 74-106 mg/dL Microbiology Date/Time Source Procedure Growth Status 02/21/25 12:01 Sacrum Gram Stain - Final Resulted 02/21/25 12:01 Sacrum Wound Culture - Preliminary Resulted 02/19/25 17:53 Stool Stool Culture - Final Complete 02/19/25 17:53 Stool Shiga Toxin I & II - Final Complete 02/19/25 16:00 Voided Urine Urine Culture - Final Complete 02/19/25 08:59 Blood Blood Culture - Preliminary Resulted Problem List/Assessment/Plan Problem List/Assessment/Plan Aspiration pneumonia? Pneumonia due to Gram-positive or Gram-negative organism IV ceftriaxone Acute gastroenteritis Sigmoid diverticulosis Cholelithiasis Abdomen/Pelvis CT: Extensive sigmoid diverticulosis without evidence of diverticulitis. Cholelithiasis. IV bolus fluid IV ceftriaxone and metronidazole Stool culture, stool C diff sent Urinalysis and urine culture sent Dementia, Increasing confusion and agitation On home medications Stage II sacral ulcers Abdomen/Pelvis CT: Early sacrococcygeal decubitus ulcer formation. JOSE due to VMN IV fluid Monitor renal functions History of systolic or diastolic heart failure with unknown ejection fraction Input output monitoring Chest x-ray reveals pulmonary edema/pneumonia IV Ceftriaxone and doxycycline History of COPD Continue home medications History of type 2 diabetes mellitus Continue home medications CKD stage 4 Continue home medications Essential Hypertension Continue home medications Plan discussed with Dr. Cano Plan discussed with: Patient Dietary Evaluation Review Recommendations by RD: Dietary education by RD Comments: 1) Initiate MVI @ 1 tb qd 2) Initiate vitamin C @ 500 mg bid and zinc sulfate @ 220 mg for 7 days 3) If patient remains NPO > 7 days, 4) Advance to 45g CCHO cardiac diet when medically feasible 5) Refer to outpatient RD/CDCES for weight management 6) Follow-up with gastroenterology, cardiology, pulmonology, and nephrology 7) Continue to monitor I&O, labs, and skin integrity Expected Outcomes/Goals: 1) patient to receive nutritional support within 7 days of NPO status 2) labs and GI symptoms to improve 3) wounds to improve 4) diet to advance 5) gradual wt loss 6) f/u in 3-5 days Date of Service: Feb 22, 2025 Billing Provider: TAE CANO MD Common Visit Codes: [id number] INP/OBS CARE(HIGH) CHRIS ALEJANDRE RESIDENT Feb 22, 2025 16:37 TAE CANO MD Mar 01, 2025 21:08
[2025-02-22] MEDS: VANCOMYCIN 750MG KIT 100 ML IV ONE (18:32)
[2025-02-22 20:00] VITALS: PULSE 83; PULSE 85
[2025-02-22 21:00] VITALS: BP 152/84; PULSE 86; RESP 18; TEMP 98.2; O2SAT 96
[2025-02-22] MEDS: MUPIROCIN 2% OINT 15gm or 22gm FOR MRSA NARES EACHNOSTRI SCH (22:34)
[2025-02-23] VITALS (8 sets, daily range): BP systolic 155–161; BP diastolic 70–84; PULSE 65–89; RESP 17–21; TEMP 98.3–98.8; O2SAT 93–98
[2025-02-23 13:39] LABS: Hemoglobin 9.8 g/dL (12.2-16.2); Nucleated Red Blood Cells % 0.1 %
[2025-02-23 13:40] LABS: Hematocrit 30.8 % (36.0-46.0); Mean Corpuscular Hemoglobin 26.3 pg (28.0-32.0); Mean Corpuscular Volume 82.4 fL (80.0-100.0)
[2025-02-23 13:50] LABS: Albumin 3.2 g/dL (3.2-4.8); Alkaline Phosphatase 83 U/L (46-116); Anion Gap 10 (5-15); BUN/Creatinine Ratio 12.2 (10.0-20.0); Blood Urea Nitrogen 15 mg/dL (9-23); Chloride 105 mmol/L (98-107); Potassium 3.8 mmol/L (3.5-5.1)
[2025-02-23 13:51] LABS: Alanine Aminotransferase < 9 U/L (7-40); Bilirubin, Total 0.3 mg/dL (0.2-1.0); Calcium 8.0 mg/dL (8.7-10.4); Carbon Dioxide 31 mmol/L (20-31); Glucose 146 mg/dL (74-106); Sodium 146 mmol/L (136-145); Total Protein 5.5 g/dL (5.7-8.2)
--- NOTE | 2025-02-23 17:17 | DVHPNRES ---
Progress Note Date Seen: Feb 23, 2025 Resident Creating Document: CHRIS ALEJANDRE Medical Necessity Reason Pt with a Central, PICC or Fol: Yes (RN) The following are medically ne: Cruz Catheter Subjective Review of Systems Shiela Patient is a 70-year-old female with past medical history of congestive heart failure with unknown ejection fraction, chronic obstructive pulmonary disease, type 2 diabetes mellitus, peripheral neuropathy, chronic kidney disease stage 4 with unknown dialysis status (currently producing urine), anemia, hearing loss, hyperlipidemia, hypertension, and obesity, presented to [facility] ED with complaint of diarrhea. She presented to the emergency department via EMS from [facility] with a chief complaint of two days of watery diarrhea. The diarrhea was described as abundant, foul-smelling, yellowish in color, and without blood. Associated symptoms included loss of appetite, shortness of breath, wet cough, and generalized weakness. The patient has been residing in the post-acute care facility since November 17, 2024, following a tibia fracture. Today, her caregiver noted a change in mental status, including confusion and agitation, and decided to bring her to the emergency department. The caregiver denied any fever, nausea, vomiting, or other symptoms. Patient was noted to have altered mental status, confusion, and agitation. Additional symptoms included loss of appetite, shortness of breath, cough, and generalized weakness. The patient had been residing in a post-acute care facility following a tibia fracture. Her current presentation raises concern for possible infectious etiology, metabolic derangement, or decompensation of her chronic medical conditions. Further evaluation and management are ongoing. Past medical history: CHF, COPD, Dementia, DM, ESRD (Stage IV), HTN Past surgical history: Unknown (Caregiver does not have this information. ), Unobtainable Social & Personal history: Smoker: Non-Smoker. Alcohol: Denies ETOH Use. Drugs: Denies Drug Use. Lives In: Jail ([facility]) The patient was seen and examined at bedside. The patient is still confused and was not able to provide any history due to cognitive impairment. Nurse reports the patient to be violent. Has a sitter. Was not able to contact the family despite calling multiple times. Other Systems: Unable to obtain ROS because the patient is confused. Objective vital signs Vital Sign Date Time Temp Pulse Resp B/P (MAP) Pulse Ox O2 Delivery O2 Flow Rate FiO2 02/23/25 09:00 98.8 65 17 156/84 (139) 93 98.8 02/23/25 08:10 Nasal Cannula* 2 28 Total Intake and Output 02/22/25 02/22/25 02/23/25 15:00 23:00 07:00 Intake Total 50 ml 350 ml 300 ml Output Total 650 ml 300 ml Balance 50 ml -300 ml 0 ml medications Current Medications Medications Dose Ordered Sig/Jessica Route Start Time Stop Time Status Last Admin Dose Admin Ceftriaxone Sodium 50 ml @ 100 mls/hr DAILY@09 IV 02/20/25 09:00 02/22/25 09:01 100 MLS/HR Pantoprazole Sodium 40 mg DAILY IV 02/20/25 10:00 02/22/25 09:08 40 MG Enoxaparin Sodium 40 mg DAILY SC 02/20/25 10:00 02/22/25 09:09 40 MG Vancomycin HCl 0 ml @ 0 mls/hr UD IV 02/20/25 10:00 Hydromorphone HCl 0.5 mg Q6HPRN PRN IV 02/20/25 13:45 02/21/25 03:58 0.5 MG Ondansetron HCl 4 mg Q4HPRN PRN IV 02/20/25 14:30 Mirtazapine 15 mg HS PO 02/21/25 22:00 02/22/25 22:36 15 MG Atorvastatin Calcium 40 mg HS PO 02/21/25 22:00 02/22/25 22:35 40 MG Buspirone HCl 10 mg Q8HR PO 02/21/25 22:00 02/23/25 05:41 10 MG Clopidogrel Bisulfate 75 mg DAILY PO 02/22/25 10:00 02/22/25 09:21 75 MG Fluoxetine HCl 40 mg DAILY PO 02/22/25 10:00 02/22/25 09:21 40 MG Zolpidem Tartrate 5 mg HS PO 02/21/25 22:00 02/22/25 22:37 5 MG Mupirocin 1 applic BID EACHNOSTRI 02/22/25 22:00 02/27/25 21:59 02/22/25 22:34 1 APPLIC Vancomycin HCl 100 ml @ 80 mls/hr DAILY@1800 IV 02/23/25 18:00 Examination General Appearance: Alert, Oriented X0, Cooperative, Mild distress HEENT: Atraumatic, Mucous membranes moist/pink Respiratory: Clear to auscultation, Normal air movement, No added sounds Cardiovascular: Regular rate, Normal S1, Normal S2, No murmurs Abdominal/ : Active bowel sounds, Soft, no distention, no tenderness Extremities: No edema, Normal pulses, No tenderness/swelling Skin: Stage II ulcer over the lower back, sacral area, redness and erythema over the skin folds, present on admission Neuro: Normal speech, sensorimotor deficits none Psych/Mental Status: Mental status NL, Mood NL laboratory and microbiology Laboratory Tests 02/23/25 12:58 Test 02/23/25 12:58 Range/Units Serum Glucose 146 H 74-106 mg/dL Microbiology Date/Time Source Procedure Growth Status 02/21/25 12:01 Sacrum Gram Stain - Final Resulted 02/21/25 12:01 Wound Culture - Preliminary Escherichia coli - ESBL Resulted 02/19/25 17:53 Stool Stool Culture - Final Complete 02/19/25 17:53 Stool Shiga Toxin I & II - Final Complete 02/19/25 16:00 Voided Urine Urine Culture - Final Complete 02/19/25 08:59 Blood Blood Culture - Preliminary Resulted Problem List/Assessment/Plan Problem List/Assessment/Plan Aspiration pneumonia? Pneumonia due to Gram-positive or Gram-negative organism IV ceftriaxone Acute gastroenteritis Sigmoid diverticulosis Cholelithiasis Abdomen/Pelvis CT: Extensive sigmoid diverticulosis without evidence of diverticulitis. Cholelithiasis. IV bolus fluid IV ceftriaxone and metronidazole Stool culture, stool C diff sent Urinalysis and urine culture sent Dementia, Increasing confusion and agitation On home medications Stage II sacral ulcers Abdomen/Pelvis CT: Early sacrococcygeal decubitus ulcer formation. JOSE due to VMN IV fluid Monitor renal functions History of systolic or diastolic heart failure with unknown ejection fraction Input output monitoring Chest x-ray reveals pulmonary edema/pneumonia IV Ceftriaxone and doxycycline History of COPD Continue home medications History of type 2 diabetes mellitus Continue home medications CKD stage 4 Continue home medications Essential Hypertension Continue home medications Plan discussed with Dr. Cano GI PROPHYLAXIS:: Protonix CODE STATUS: Goal of care discussed for more than 18 minutes, full code DISPOSITION: Med/surge Plan discussed with: Patient My Orders My Orders Orders - CHRIS ALEJANDRE RESIDENT Procedure Category Date Status Time Communication Order ORDERS 02/23/25 Transmitted 09:02 * Roll Builder CONS 02/23/25 Transmitted Consult 09:53 Cleanse Wound With BONG 02/23/25 In Process Wound Clean 10:30 Complete Blood Count LAB 02/24/25 Verified 04:00 Comprehensive LAB 02/24/25 Verified Metabolic Panel 04:00 Dietary Evaluation Review Recommendations by RD: Dietary education by RD Comments: 1) Initiate MVI @ 1 tb qd 2) Initiate vitamin C @ 500 mg bid and zinc sulfate @ 220 mg for 7 days 3) If patient remains NPO > 7 days, 4) Advance to 45g CCHO cardiac diet when medically feasible 5) Refer to outpatient RD/CDCES for weight management 6) Follow-up with gastroenterology, cardiology, pulmonology, and nephrology 7) Continue to monitor I&O, labs, and skin integrity Expected Outcomes/Goals: 1) patient to receive nutritional support within 7 days of NPO status 2) labs and GI symptoms to improve 3) wounds to improve 4) diet to advance 5) gradual wt loss 6) f/u in 3-5 days Date of Service: Feb 23, 2025 Billing Provider: TAE CANO MD Common Visit Codes: [id number] INP/OBS CARE(HIGH) CHRIS ALEJANDRE RESIDENT Feb 23, 2025 17:17 TAE CANO MD Mar 01, 2025 21:08
[2025-02-23] MEDS: VANCOMYCIN 500mg/100mL 100 ML IV SCH (18:00)
[2025-02-23] MEDS: ONDANSETRON HCL 4 MG/2 ML VIAL IV PRN (22:56)
[2025-02-24 00:54] VITALS: BP 156/90; PULSE 86; RESP 10; RESP 20; TEMP 98; O2SAT 98
[2025-02-24 05:05] VITALS: BP 166/102; PULSE 83; RESP 19; TEMP 98.7; O2SAT 96
[2025-02-24] MEDS: hydrALAZINE HCL 20 MG/ML VL IV ONE (07:19)
[2025-02-24 08:00] VITALS: PULSE 93; RESP 16; O2SAT 96
[2025-02-24 09:00] VITALS: BP 128/74; PULSE 93; RESP 16; TEMP 97.7; O2SAT 96
[2025-02-24] MEDS ORDERED: BACDST PO ×2 (09:46→09:48)
[2025-02-24] MEDS: SULFAMETHOX W/TRIMETH(800/160MG) DS TAB PO SCH (14:45)
--- NOTE | 2025-02-24 15:56 | DVHDSRES ---
Discharge Summary Date of Admission Resident Creating Document: CHRIS ALEJANDRE RESIDENT Feb 19, 2025 at 17:28 Date of Discharge: Feb 24, 2025 Labs/Diagnostic Data: Laboratory Results Test 02/23/25 12:58 02/21/25 05:02 02/20/25 11:46 02/20/25 07:40 White Blood Count 6.9 10^3/uL (4.4-10.8) Red Blood Count 3.73 10^6/uL (4.0-5.20) Hemoglobin 9.8 g/dL (12.2-16.2) Hematocrit 30.8 % (36.0-46.0) Mean Corpuscular Volume 82.4 fL (80.0-100.0) Mean Corpuscular Hemoglobin 26.3 pg (28.0-32.0) Mean Corpuscular Hemoglobin Concent 31.9 g/dL (32.0-36.0) Red Cell Distribution Width 15.7 % (11.8-14.3) Platelet Count 253 10^3/uL (140-450) Mean Platelet Volume 7.9 fL (6.9-10.8) Neutrophils (%) (Auto) 75.8 % (37.0-80.0) Lymphocytes (%) (Auto) 6.1 % (10.0-50.0) Monocytes (%) (Auto) 12.9 % (0.0-12.0) Eosinophils (%) (Auto) 4.8 % (0.0-7.0) Basophils (%) (Auto) 0.4 % (0.0-2.0) Neutrophils # (Auto) 5.3 10 ^3/uL (1.6-8.6) Lymphocytes # (Auto) 0.4 10 ^3/uL (0.4-5.4) Monocytes # (Auto) 0.9 10 ^3/uL (0-1.3) Eosinophils # (Auto) 0.3 10 ^3/uL (0-0.8) Basophils # (Auto) 0 10 ^3/uL (0-0.2) Nucleated Red Blood Cells 0.1 % Sodium Level 146 mmol/L (136-145) Potassium Level 3.8 mmol/L (3.5-5.1) Chloride Level 105 mmol/L (98-107) Carbon Dioxide Level 31 mmol/L (20-31) Anion Gap 10 (5-15) Blood Urea Nitrogen 15 mg/dL (9-23) Creatinine 1.23 mg/dL (0.550-1.02) Glomerular Filtration Rate Calc 46 mL/min (>90) BUN/Creatinine Ratio 12.2 (10.0-20.0) Serum Glucose 146 mg/dL (74-106) Calcium Level 8.0 mg/dL (8.7-10.4) Total Bilirubin 0.3 mg/dL (0.2-1.0) Aspartate Amino Transferase (AST) < 8 U/L (13-40) Alanine Aminotransferase (ALT) < 9 U/L (7-40) Alkaline Phosphatase 83 U/L (46-116) Total Protein 5.5 g/dL (5.7-8.2) Albumin 3.2 g/dL (3.2-4.8) Random Vancomycin Level 19.0 ug/mL (5-10) Magnesium Level 1.9 mg/dL (1.6-2.6) Lactic Acid Level 1.2 mmol/L (0.4-2.0) Thyroid Stimulating Hormone (TSH) 2.49 uIU/mL (0.55-4.78) Test 02/19/25 18:21 02/19/25 17:53 02/19/25 16:00 02/19/25 08:59 Vancomycin Level Trough 6.6 ug/mL (5-10) Stool for White Cells None seen Urine Color Colorless (Yellow) Urine Clarity Turbid (Clear) Urine pH 5.5 (5.0-9.0) Urine Specific Terrell 1.009 (1.001-1.035) Urine Protein Negative (Negative) Urine Ketones Negative (Negative) Urine Blood Negative /uL (Negative) Urine Nitrite Negative (Negative) Urine Bilirubin Negative (Negative) Urine Urobilinogen Normal mg/dL (Negative) Urine Leukocyte Esterase 3+ /uL (Negative) Urine RBC 1 /hpf (0 - 4) Urine Microscopic WBC 149 /HPF (0-5) Urine Squamous Epithelial Cells Many /hpf (<5) Urine Bacteria Mod /hpf (None Seen) Urine Hyaline Casts Few /lpf (0 - 2) Urine Yeast (Budding) Occasional /hpf (None Urine Glucose Normal mg/dL (Normal) B-Type Natriuretic Peptide 94.11 pg/mL (0-100) Lipase 29 U/L (12-53) Test 02/19/25 08:09 Influenza Type A Antigen Negative (Negative) Influenza Type B Antigen Negative (Negative) SARS-CoV-2 Antigen (Rapid) Negative (NEGATIVE) Other Laboratory Tests 02/23/25 12:58 Brief Hx & Hospital Course: Patient is a 70-year-old female with past medical history of congestive heart failure with unknown ejection fraction, chronic obstructive pulmonary disease, type 2 diabetes mellitus, peripheral neuropathy, chronic kidney disease stage 4 with unknown dialysis status (currently producing urine), anemia, hearing loss, hyperlipidemia, hypertension, and obesity, presented to [facility] ED with complaint of diarrhea. She presented to the emergency department via EMS from [facility] with a chief complaint of two days of watery diarrhea. The diarrhea was described as abundant, foul-smelling, yellowish in color, and without blood. Associated symptoms included loss of appetite, shortness of breath, wet cough, and generalized weakness. The patient has been residing in the post-acute care facility since November 17, 2024, following a tibia fracture. Today, her caregiver noted a change in mental status, including confusion and agitation, and decided to bring her to the emergency department. The caregiver denied any fever, nausea, vomiting, or other symptoms. Patient was noted to have altered mental status, confusion, and agitation. Additional symptoms included loss of appetite, shortness of breath, cough, and generalized weakness. The patient had been residing in a post-acute care facility following a tibia fracture. Her current presentation raises concern for possible infectious etiology, metabolic derangement, or decompensation of her chronic medical conditions. During the course of hospitalization, patient the symptomatically better and infection resolved. Hence the patient is being discharged. The patient remains confused. Patient is being discharged to home hospice Condition at Discharge: Fair Final Diagnosis/Problems List Aspiration pneumonia? Acute gastroenteritis Sigmoid diverticulosis Cholelithiasis Dementia, Increasing confusion and agitation Stage 3 sacral ulcers, present on admission JOSE due to VMN History of systolic or diastolic heart failure with unknown ejection fraction History of COPD History of type 2 diabetes mellitus CKD stage 4 Essential Hypertension Discharge Disposition: Hospice - Home Discharge Instruct/Medications Diet: Regular Activity: No Restrictions, As Tolerated Medications: bactrim DS BID for 10 days Scheduled Linezolid (Zyvox), 600 MG PO BID Sulfamethoxazole W/Trimethopri (Bactrim Ds Tablet), 1 TAB PO BID Discharge Statement: "Patient was advised to return to the ER or call 911 if any headaches, dizziness, shortness of breath, chest pain, abdominal pain, bleeding, fevers, or worsening of medical condition. Patient was counseled about treatment plan, medications, possible side effects, patientverbalized understanding. All questions were answered to the best of my ability. This discharge took greater then 30 minutes in planning, reviewing documentation, counseling the patient, and discussing with other team members." ASSESSMENT ASSESSMENT Assessment acute metabolic encephalopathy sepsis Date of Service: Feb 24, 2025 Billing Provider: TAE CHACON MD Common Visit Codes: 36253-ILM/OBS DISCH DAY >30min CHRIS ALEJANDRE RESIDENT Feb 24, 2025 15:47 TAE CHACON MD Mar 01, 2025 21:08
[2025-02-24] MEDS: METOCLOPRAMIDE HCL 5MG/ml INJ 2ml VIAL IV ONE (16:22)
[2025-02-24] MEDS: HALOPERIDOL LACTATE 5 MG/ML INJ VIAL IM ONE (16:25)
[2025-02-24 17:00] VITALS: BP 146/75; PULSE 85; RESP 17; TEMP 97.8; O2SAT 97
[2025-02-24] MEDS ORDERED: LINE1TAB6 PO (19:20)
[2025-02-24] MEDS ORDERED: LINEZOLID 600MG TABLET PO SCH (19:30)
[2025-02-24 21:00] VITALS: BP 141/81; PULSE 79; RESP 18; TEMP 97.8; O2SAT 99
== END 2025-02-24 22:05 | disposition hospice, home (50) | DRG 871 ==
LOC: ER 08:10 → OVERFLOW 17:28 → TELE-EAST 02-20 22:39 → TELE-WESTW 02-22 20:30 → TELE-EAST 02-22 23:18
PROVIDERS: ADMIT Internal Medicine Geriatric Medicine; ATTEND Internal Medicine Geriatric Medicine
DX: A41.9 Sepsis, unspecified organism (principal); G93.41 Metabolic encephalopathy; L89.153 Pressure ulcer of sacral region, stage 3; J15.69 Pneumonia due to other Gram-negative bacteria; J15.9 Unspecified bacterial pneumonia; J69.0 Pneumonitis due to inhalation of food and vomit; N17.0 Acute kidney failure with tubular necrosis; I13.2 Hypertensive heart and chronic kidney disease with heart failure and with stage 5 chronic kidney disease, or end stage renal disease; J44.0 Chronic obstructive pulmonary disease with (acute) lower respiratory infection; J44.1 Chronic obstructive pulmonary disease with (acute) exacerbation; Z68.41 Body mass index [BMI] 40.0-44.9, adult; N18.4 Chronic kidney disease, stage 4 (severe); I50.42 Chronic combined systolic (congestive) and diastolic (congestive) heart failure; F03.911 Unspecified dementia, unspecified severity, with agitation; A09 Infectious gastroenteritis and colitis, unspecified; Z20.822 Contact with and (suspected) exposure to COVID-19; E11.22 Type 2 diabetes mellitus with diabetic chronic kidney disease; E11.40 Type 2 diabetes mellitus with diabetic neuropathy, unspecified; F03.90 Unspecified dementia, unspecified severity, without behavioral disturbance, psychotic disturbance, mood disturbance, and anxiety; E78.5 Hyperlipidemia, unspecified; E66.9 Obesity, unspecified; K57.30 Diverticulosis of large intestine without perforation or abscess without bleeding; K80.20 Calculus of gallbladder without cholecystitis without obstruction; Z91.0110 Allergy to milk products, unspecified; Z79.899 Other long term (current) drug therapy
CPT/HCPCS: 36415; 71045; 74176; 80048; 80053; 80202; 81001; 83605; 83690; 83735; 83880; 84443; 85025; 85048; 87040; 87045; 87077; 87081; 87086; 87186; 87205; 87426; 87427; 87493; 87804; 92610; 93306; 96374; 96375; G0378; J2405; J2470; J3490